=== PATIENT | male | born 1965 | race Caucasian/White ===

== ENCOUNTER 2020-06-04 14:50 | Emergency (ER) | payer MEDICAID, OTHER ==
[~2020-06-04] VITALS: Ht 165.1 cm; Wt 59.0 kg
[2020-06-04 15:23] LABS: Basophils # (auto) 0.1 10 ^3/uL (0-0.2); Basophils % (auto) 0.8 % (0.0-2.0); Eosinophils # (auto) 0.1 10 ^3/uL (0-0.8); Eosinophils % (auto) 1.1 % (0.0-7.0); Hematocrit 34.5 % (41.0-53.0); Hemoglobin 11.9 g/dL (13.5-17.5); Lymphocytes # (auto) 0.8 10 ^3/uL (0.4-5.4); Lymphocytes % (auto) 6.2 % (10.0-50.0); Mean Corpuscular Hemoglobin 30.6 pg (28.0-32.0); Mean Corpuscular Hgb Conc. 34.4 g/dL (32.0-36.0); Monocytes # (auto) 0.6 10 ^3/uL (0-1.3); Monocytes % (auto) 4.7 % (0.0-12.0); Neutrophils # (auto) 11.4 10 ^3/uL (1.6-8.6); Neutrophils % (auto) 87.2 % (37.0-80.0); Platelet Count (auto) 346 10^3/uL (140-450); Red Blood Cells 3.88 10^6/uL (4.5-5.90)
[2020-06-04 15:38] LABS: Albumin 3.9 g/dL (3.4-5.0); Calcium 8.8 mg/dL (8.5-10.1)
[2020-06-04 15:41] LABS: BUN/Creatinine Ratio 13.5; Bilirubin, Total 0.6 mg/dL (0.2-1.0); Total Protein 7.3 g/dL (6.4-8.2)
[2020-06-04 15:46] LABS: Potassium 2.6 mmol/L (3.5-5.1)
[2020-06-04] MEDS ORDERED: POTASSIUM EFFERVESENT TAB 25 MEQ PO ONE ×2 (16:30→18:30)
[2020-06-04] MEDS ORDERED: ACETAMINOPHEN 325 MG TAB PO ONE (20:30)
[2020-06-04] MEDS ORDERED: PIPERACILLIN-TAZOB 3.375GM 100 ML IV ONE (23:00)
[2020-06-05 01:45] VITALS: BP 120/79
== END 2020-06-05 01:56 | disposition home or self-care (01) ==
LOC: ER 14:50
DX: L03.116 Cellulitis of left lower limb (principal); L97.529 Non-pressure chronic ulcer of other part of left foot with unspecified severity; E87.6 Hypokalemia; F17.210 Nicotine dependence, cigarettes, uncomplicated; J44.9 Chronic obstructive pulmonary disease, unspecified
CPT/HCPCS: 36415; 73700; 80053; 83605; 83880; 84132; 84484; 85025; 87040; 93970; 96360; 96365; 96366; 99285; J2543

== ENCOUNTER 2020-09-10 12:46 | Inpatient (IN) | payer OTHER, MEDICAID ==
[~2020-09-10] VITALS: Ht 162.6 cm; Wt 50.8 kg
[2020-09-10 14:49] LABS: Basophils # (auto) 0.1 10 ^3/uL (0-0.2); Basophils % (auto) 1.2 % (0.0-2.0); Eosinophils # (auto) 0 10 ^3/uL (0-0.8); Eosinophils % (auto) 0.3 % (0.0-7.0); Hemoglobin 12.9 g/dL (13.5-17.5); Lymphocytes % (auto) 10.3 % (10.0-50.0); Mean Corpuscular Hemoglobin 30.9 pg (28.0-32.0); Mean Corpuscular Hgb Conc. 34.9 g/dL (32.0-36.0); Mean Corpuscular Volume 88.6 fL (80.0-100.0); Monocytes # (auto) 0.8 10 ^3/uL (0-1.3); Monocytes % (auto) 8.8 % (0.0-12.0); Neutrophils # (auto) 7.5 10 ^3/uL (1.6-8.6); Neutrophils % (auto) 79.4 % (37.0-80.0); Nucleated Red Blood Cells % 0.1 %; Platelet Count (auto) 345 10^3/uL (140-450); Red Blood Cells 4.18 10^6/uL (4.5-5.90); Red Cell Distribution Width 13.9 % (11.8-14.3); White Blood Cell 9.4 10^3/uL (4.4-10.8)
[2020-09-10 15:08] LABS: INR 0.98 (0.9-1.15); Partial Thromboplastin Time 28.8 sec (23.0-31.2)
[2020-09-10 15:22] LABS: Calcium 9.3 mg/dL (8.5-10.1)
[2020-09-10 15:28] LABS: Albumin 4.1 g/dL (3.4-5.0); BUN/Creatinine Ratio 21.3; Bilirubin, Total 1.1 mg/dL (0.2-1.0); Total Protein 7.5 g/dL (6.4-8.2)
[2020-09-10 15:42] LABS: Potassium 2.8 mmol/L (3.5-5.1)
[2020-09-10] MEDS ORDERED: MORPHINE SULFATE 4 MG/ML SYR/VIAL ONE (16:29)
[2020-09-10] MEDS ORDERED: ONDANSETRON HCL 4 MG/2 ML VIAL ONE (16:29)
[2020-09-10] MEDS ORDERED: ETOMIDATE (2MG/ML) 20ML VIAL IV ONE ×3 (16:29→17:51)
[2020-09-10] MEDS ORDERED: MORPHINE SULFATE 4 MG/ML SYR/VIAL IV ONE (16:30)
[2020-09-10] MEDS ORDERED: ONDANSETRON HCL 4 MG/2 ML VIAL IV ONE (16:30)
[2020-09-10] MEDS ORDERED: LIDOCAINE 1% HCL (LOCAL ANESTH.) INJ 20ML MDV ONE (16:39)
[2020-09-10] MEDS ORDERED: cefTRIAXone 1GM/50ML D5W 50 ML IV ONE (18:08)
[2020-09-10] MEDS ORDERED: MORPHINE SULF INJ 2 MG/ML SYRINGE 1ML ONE (18:10)
[2020-09-10] MEDS ORDERED: LORazepam 2MG/ML-1ML VIAL IV ONE (18:11)
[2020-09-10] MEDS ORDERED: LORazepam MDV 2MG/ML 10 ML IV ONE (18:11)
[2020-09-10] MEDS ORDERED: POTASSIUM CHL 20MEQ/100ML 100 ML IV ONE (18:53)
[2020-09-10] MEDS ORDERED: POTASSIUM CHLORIDE 40 MEQ, LIDOCAINE 1% (LOCAL ANESTH.) 4 ML in SODIUM CHL 0.9% 250 ML IV ONE (19:00)
[2020-09-10] MEDS: SODIUM CHLORIDE 0.9% 1,000 ML IV SCH (19:15)
[2020-09-10] MEDS ORDERED: POTASSIUM EFFERVESENT TAB 25 MEQ PO ONE (21:00)
[2020-09-10] MEDS: POTASSIUM CHL 20MEQ/100ML 100 ML IV SCH ×2 (21:30→22:19)
[2020-09-10] MEDS ORDERED: MORPHINE SULFATE 4 MG/ML SYR/VIAL IV PRN (21:30)
[2020-09-10] MEDS ORDERED: ONDANSETRON HCL 4 MG/2 ML VIAL IV PRN (21:30)
[2020-09-10] MEDS ORDERED: MORPHINE SULF INJ 2 MG/ML SYRINGE 1ML IV PRN (21:30)
[2020-09-10] MEDS ORDERED: NITROGLYCERIN 0.4 MG SL TAB SL PRN (21:30)
[2020-09-10] MEDS ORDERED: DOCUSATE SOD 100 MG CAP PO PRN (21:30)
[2020-09-10] MEDS ORDERED: IOHEXOL 300 MG/ML 100ML BOTTLE IJ ONE (21:49)
[2020-09-10] MEDS: ASCORBIC ACID 500 MG TAB PO SCH (22:00)
[2020-09-11] VITALS (47 sets, daily range): BP systolic 80–182; BP diastolic 43–127
[2020-09-11] MEDS ORDERED: POTASSIUM CHLORIDE 20 MEQ in SODIUM CHLORIDE 0.9% 1,000 ML IV SCH (01:30)
[2020-09-11] MEDS ORDERED: SUCCINYLCHOLINE CHLORIDE 20 MG/ML 10ML VIAL IV ONE ×2 (05:11→05:30)
[2020-09-11] MEDS: SODIUM CHLORIDE 0.9% 1,000 ML IV SCH ×2 (05:15→13:33)
[2020-09-11] MEDS ORDERED: PROPOFOL 10 MG/ML 20 ML IV PRN (05:30)
[2020-09-11] MEDS ORDERED: ETOMIDATE (2MG/ML) 20ML VIAL IV ONE (05:30)
[2020-09-11] MEDS ORDERED: PROPOFOL 100 ML IV ONE (05:33)
[2020-09-11] MEDS ORDERED: NOREPINEPHRINE 8 MG/250ML KIT 250 ML IV ONE (05:44)
[2020-09-11] MEDS ORDERED: MIDAZOLAM DRIP 50 mg/50mL 50 ML IV ONE (05:44)
[2020-09-11] MEDS: MIDAZOLAM DRIP 50 mg/50mL 50 ML IV SCH ×3 (05:58→22:00)
[2020-09-11] MEDS: PIPERACILLIN-TAZOB 3.375GM 100 ML IV SCH ×3 (05:59→18:20)
[2020-09-11] MEDS ORDERED: ALBUTEROL SULF 2.5 MG/0.5ML(0.5%) NEB SOLN ONE (09:25)
[2020-09-11] MEDS: MULTIPLE VITAMIN TAB PO SCH (10:00)
[2020-09-11] MEDS: PHENYLEPHRINE IV 250 ML IV SCH ×3 (11:54→20:00)
[2020-09-11] MEDS: NOREPINEPHRINE 8 MG/250ML KIT 250 ML IV PRN ×2 (11:55→22:00)
[2020-09-11 12:53] LABS: Basophils # (auto) 0 10 ^3/uL (0-0.2); Basophils % (auto) 1.1 % (0.0-2.0); Eosinophils # (auto) 0 10 ^3/uL (0-0.8); Eosinophils % (auto) 0.7 % (0.0-7.0); Hematocrit 39.8 % (41.0-53.0); Hemoglobin 13.4 g/dL (13.5-17.5); Lymphocytes # (auto) 0.7 10 ^3/uL (0.4-5.4); Lymphocytes % (auto) 30.6 % (10.0-50.0); Mean Corpuscular Hemoglobin 30.8 pg (28.0-32.0); Mean Corpuscular Hgb Conc. 33.7 g/dL (32.0-36.0); Mean Corpuscular Volume 91.3 fL (80.0-100.0); Monocytes # (auto) 0.2 10 ^3/uL (0-1.3); Neutrophils # (auto) 1.4 10 ^3/uL (1.6-8.6); Neutrophils % (auto) 60.6 % (37.0-80.0); Nucleated Red Blood Cells % 0.2 %; Platelet Count (auto) 285 10^3/uL (140-450); Red Blood Cells 4.36 10^6/uL (4.5-5.90); Red Cell Distribution Width 14.5 % (11.8-14.3); White Blood Cell 2.3 10^3/uL (4.4-10.8)
[2020-09-11 13:08] LABS: Albumin 2.6 g/dL (3.4-5.0); Calcium 7.8 mg/dL (8.5-10.1); Potassium 3.1 mmol/L (3.5-5.1)
[2020-09-11 13:11] LABS: BUN/Creatinine Ratio 17.3; Bilirubin, Total 0.6 mg/dL (0.2-1.0); Total Protein 5.7 g/dL (6.4-8.2)
[2020-09-11 13:13] LABS: Lactic Acid w/Reflex 3.4 mmol/L (0.4-2.0)
[2020-09-11] MEDS: FAMOTIDINE 20 MG TAB PO SCH (13:33)
[2020-09-11] MEDS: ASCORBIC ACID 500 MG TAB PO SCH ×2 (13:33→22:00)
[2020-09-11] MEDS: ZINC SULFATE 220mg CAP or TAB PO SCH (13:33)
[2020-09-11] MEDS ORDERED: POTASSIUM CHL 20MEQ/100ML 100 ML IV ONE (13:45)
[2020-09-11] MEDS: methylPREDNISolone SOD SUCC 125 MG/2 ML VL IV SCH ×2 (14:00→22:00)
[2020-09-11] MEDS: VASOPRESSIN 50 UNITS in D5W 5% 247.5 ML IV SCH (14:20)
[2020-09-11] MEDS ORDERED: VASOPRESSIN 20 UNIT/ML ONE (14:53)
[2020-09-11] MEDS: IPRATROPIUM BROM 0.5 MG/2.5ML INH SOL NEB SCH (18:00)
[2020-09-11] MEDS: ALBUTEROL SULF 2.5 MG/0.5ML(0.5%) NEB SOLN NEB SCH (18:00)
[2020-09-12] VITALS (89 sets, daily range): BP systolic 86–141; BP diastolic 62–100
[2020-09-12] MEDS: PIPERACILLIN-TAZOB 3.375GM 100 ML IV SCH ×5 (00:23→23:05)
[2020-09-12] MEDS: SODIUM CHLORIDE 0.9% 1,000 ML IV SCH ×3 (01:00→21:15)
[2020-09-12] MEDS: MIDAZOLAM DRIP 50 mg/50mL 50 ML IV SCH ×2 (01:00→05:00)
[2020-09-12 05:17] LABS: Basophils # (auto) 0 10 ^3/uL (0-0.2); Basophils % (auto) 0.2 % (0.0-2.0); Eosinophils # (auto) 0 10 ^3/uL (0-0.8); Eosinophils % (auto) 0.1 % (0.0-7.0); Hematocrit 36.9 % (41.0-53.0); Hemoglobin 12.7 g/dL (13.5-17.5); Lymphocytes # (auto) 0.3 10 ^3/uL (0.4-5.4); Lymphocytes % (auto) 2.6 % (10.0-50.0); Mean Corpuscular Hemoglobin 30.9 pg (28.0-32.0); Mean Corpuscular Hgb Conc. 34.5 g/dL (32.0-36.0); Mean Corpuscular Volume 89.6 fL (80.0-100.0); Monocytes # (auto) 0.2 10 ^3/uL (0-1.3); Monocytes % (auto) 2.6 % (0.0-12.0); Neutrophils # (auto) 9.1 10 ^3/uL (1.6-8.6); Neutrophils % (auto) 94.5 % (37.0-80.0); Platelet Count (auto) 169 10^3/uL (140-450); Red Blood Cells 4.12 10^6/uL (4.5-5.90); Red Cell Distribution Width 14.3 % (11.8-14.3); White Blood Cell 9.6 10^3/uL (4.4-10.8)
[2020-09-12 05:40] LABS: Potassium 3.2 mmol/L (3.5-5.1)
[2020-09-12 05:48] LABS: Albumin 2.3 g/dL (3.4-5.0); BUN/Creatinine Ratio 19.5; Bilirubin, Total 0.5 mg/dL (0.2-1.0); Calcium 7.4 mg/dL (8.5-10.1); Total Protein 5.4 g/dL (6.4-8.2)
[2020-09-12] MEDS: IPRATROPIUM BROM 0.5 MG/2.5ML INH SOL NEB SCH ×4 (06:00→18:24)
[2020-09-12] MEDS: ALBUTEROL SULF 2.5 MG/0.5ML(0.5%) NEB SOLN NEB SCH ×4 (06:00→18:24)
[2020-09-12] MEDS: methylPREDNISolone SOD SUCC 125 MG/2 ML VL IV SCH ×3 (06:22→22:54)
[2020-09-12] MEDS: PHENYLEPHRINE IV 250 ML IV SCH ×2 (10:45→19:05)
[2020-09-12] MEDS: POTASSIUM CHL 20MEQ/100ML 100 ML IV SCH ×4 (11:14→13:35)
[2020-09-12] MEDS: THIAMINE 100mg/ml INJ (200mg/2ml VIAL) IV SCH (11:14)
[2020-09-12] MEDS: MULTIPLE VITAMIN TAB PO SCH (11:15)
[2020-09-12] MEDS: ASCORBIC ACID 500 MG TAB PO SCH ×2 (11:15→22:58)
[2020-09-12] MEDS: FAMOTIDINE 20 MG TAB PO SCH (11:15)
[2020-09-12] MEDS: ZINC SULFATE 220mg CAP or TAB PO SCH (11:15)
[2020-09-12] MEDS: ENOXAPARIN SOD 40 MG/0.4 ML SYRINGE SC SCH (11:15)
[2020-09-12 12:22] LABS: Magnesium 1.2 mg/dL (1.6-2.6); Phosphorus 3.4 mg/dL (2.5-4.90)
[2020-09-12] MEDS: FOLIC ACID 1 MG in D5W 5% 50 ML INJ SCH (12:36)
[2020-09-12] MEDS ORDERED: METO-75 PO (13:03)
[2020-09-12] MEDS ORDERED: ALBU2TAB4 PO (13:03)
[2020-09-12] MEDS ORDERED: POTA-180 PO (13:03)
[2020-09-12] MEDS ORDERED: TIOTCAP IN (13:03)
[2020-09-12] MEDS ORDERED: HYDR-4833 PO (13:03)
[2020-09-12] MEDS ORDERED: OMEP20TA PO (13:03)
[2020-09-12] MEDS: VASOPRESSIN 50 UNITS in D5W 5% 247.5 ML IV SCH (13:49)
[2020-09-12] MEDS ORDERED: PROPOFOL 100 ML IV SCH (18:45)
[2020-09-12] MEDS: PROPOFOL 100 ML IV SCH (19:00)
[2020-09-13] VITALS (78 sets, daily range): BP systolic 85–127; BP diastolic 7–96
[2020-09-13] MEDS: MIDAZOLAM DRIP 50 mg/50mL 50 ML IV SCH ×8 (00:06→23:00)
[2020-09-13 04:14] LABS: Basophils # (auto) 0 10 ^3/uL (0-0.2); Basophils % (auto) 0.1 % (0.0-2.0); Eosinophils # (auto) 0 10 ^3/uL (0-0.8); Eosinophils % (auto) 0.1 % (0.0-7.0); Hematocrit 30.8 % (41.0-53.0); Hemoglobin 10.7 g/dL (13.5-17.5); Lymphocytes # (auto) 0.3 10 ^3/uL (0.4-5.4); Lymphocytes % (auto) 2.2 % (10.0-50.0); Mean Corpuscular Hemoglobin 30.5 pg (28.0-32.0); Mean Corpuscular Hgb Conc. 34.9 g/dL (32.0-36.0); Mean Corpuscular Volume 87.4 fL (80.0-100.0); Monocytes # (auto) 0.4 10 ^3/uL (0-1.3); Monocytes % (auto) 3.6 % (0.0-12.0); Neutrophils # (auto) 10.9 10 ^3/uL (1.6-8.6); Platelet Count (auto) 160 10^3/uL (140-450); Red Blood Cells 3.52 10^6/uL (4.5-5.90); Red Cell Distribution Width 14.2 % (11.8-14.3); White Blood Cell 11.6 10^3/uL (4.4-10.8)
[2020-09-13 04:38] LABS: BUN/Creatinine Ratio 25.7; Calcium 7.9 mg/dL (8.5-10.1); Potassium 3.1 mmol/L (3.5-5.1)
[2020-09-13] MEDS: methylPREDNISolone SOD SUCC 125 MG/2 ML VL IV SCH ×3 (05:39→22:25)
[2020-09-13] MEDS: PIPERACILLIN-TAZOB 3.375GM 100 ML IV SCH ×3 (05:39→18:44)
[2020-09-13] MEDS: SODIUM CHLORIDE 0.9% 1,000 ML IV SCH ×2 (05:47→17:15)
[2020-09-13] MEDS: IPRATROPIUM BROM 0.5 MG/2.5ML INH SOL NEB SCH ×4 (08:00→18:30)
[2020-09-13] MEDS: ALBUTEROL SULF 2.5 MG/0.5ML(0.5%) NEB SOLN NEB SCH ×4 (10:37→18:31)
[2020-09-13] MEDS: POTASSIUM CHL 20MEQ/100ML 100 ML IV SCH ×2 (11:27→13:58)
[2020-09-13] MEDS: THIAMINE 100mg/ml INJ (200mg/2ml VIAL) IV SCH (11:28)
[2020-09-13] MEDS: ASCORBIC ACID 500 MG TAB PO SCH ×2 (11:29→22:27)
[2020-09-13] MEDS: ZINC SULFATE 220mg CAP or TAB PO SCH (11:29)
[2020-09-13] MEDS: FAMOTIDINE 20 MG TAB PO SCH (11:29)
[2020-09-13] MEDS: ENOXAPARIN SOD 40 MG/0.4 ML SYRINGE SC SCH (11:30)
[2020-09-13] MEDS: MULTIPLE VITAMIN TAB PO SCH (11:31)
[2020-09-13] MEDS: PHENYLEPHRINE IV 250 ML IV SCH ×2 (11:45→20:05)
[2020-09-13] MEDS: VASOPRESSIN 50 UNITS in D5W 5% 247.5 ML IV SCH (14:00)
[2020-09-13] MEDS: MAGNESIUM SULFATE 1GM/100ML 100 ML IV SCH ×3 (16:40→18:43)
[2020-09-13] MEDS: FOLIC ACID 1 MG in D5W 5% 50 ML INJ SCH (16:45)
[2020-09-13] MEDS: PROPOFOL 100 ML IV SCH (19:00)
[2020-09-14] VITALS (95 sets, daily range): BP systolic 103–158; BP diastolic 73–104
[2020-09-14] MEDS: PIPERACILLIN-TAZOB 3.375GM 100 ML IV SCH ×4 (00:33→17:23)
[2020-09-14] MEDS: IPRATROPIUM BROM 0.5 MG/2.5ML INH SOL NEB SCH ×5 (01:59→22:09)
[2020-09-14] MEDS: ALBUTEROL SULF 2.5 MG/0.5ML(0.5%) NEB SOLN NEB SCH ×5 (01:59→22:09)
[2020-09-14] MEDS: PHENYLEPHRINE IV 250 ML IV SCH (04:25)
[2020-09-14 04:51] LABS: Calcium 8.2 mg/dL (8.5-10.1); Magnesium 2.4 mg/dL (1.6-2.6); Potassium 3.1 mmol/L (3.5-5.1)
[2020-09-14 04:53] LABS: BUN/Creatinine Ratio 24.3
[2020-09-14] MEDS: SODIUM CHLORIDE 0.9% 1,000 ML IV SCH ×2 (06:00→17:23)
[2020-09-14] MEDS: MIDAZOLAM DRIP 50 mg/50mL 50 ML IV SCH ×2 (06:00→09:01)
[2020-09-14] MEDS: methylPREDNISolone SOD SUCC 125 MG/2 ML VL IV SCH ×3 (06:20→21:53)
[2020-09-14] MEDS: THIAMINE 100mg/ml INJ (200mg/2ml VIAL) IV SCH (09:54)
[2020-09-14] MEDS: FOLIC ACID 1 MG in D5W 5% 50 ML INJ SCH (09:54)
[2020-09-14] MEDS: FAMOTIDINE 20 MG TAB PO SCH (09:55)
[2020-09-14] MEDS: ENOXAPARIN SOD 40 MG/0.4 ML SYRINGE SC SCH (09:55)
[2020-09-14] MEDS: ASCORBIC ACID 500 MG TAB PO SCH ×2 (09:55→21:54)
[2020-09-14] MEDS: MULTIPLE VITAMIN TAB PO SCH (09:55)
[2020-09-14] MEDS: ZINC SULFATE 220mg CAP or TAB PO SCH (09:55)
[2020-09-14] MEDS: POTASSIUM CHL 20MEQ/100ML 100 ML IV SCH ×3 (09:57→13:53)
[2020-09-14] MEDS: PROPOFOL 100 ML IV SCH (19:00)
[2020-09-14] MEDS: MORPHINE SULF INJ 2 MG/ML SYRINGE 1ML IV PRN (22:01)
[2020-09-15] VITALS (46 sets, daily range): BP systolic 100–175; BP diastolic 72–111
[2020-09-15] MEDS: PIPERACILLIN-TAZOB 3.375GM 100 ML IV SCH ×5 (00:38→23:13)
[2020-09-15] MEDS: SODIUM CHLORIDE 0.9% 1,000 ML IV SCH ×3 (01:41→12:11)
[2020-09-15 04:16] LABS: Basophils # (auto) 0 10 ^3/uL (0-0.2); Basophils % (auto) 0.1 % (0.0-2.0); Eosinophils # (auto) 0 10 ^3/uL (0-0.8); Eosinophils % (auto) 0.1 % (0.0-7.0); Hematocrit 26.2 % (41.0-53.0); Hemoglobin 9.3 g/dL (13.5-17.5); Lymphocytes # (auto) 0.2 10 ^3/uL (0.4-5.4); Lymphocytes % (auto) 1.7 % (10.0-50.0); Mean Corpuscular Hemoglobin 30.9 pg (28.0-32.0); Mean Corpuscular Hgb Conc. 35.4 g/dL (32.0-36.0); Mean Corpuscular Volume 87.3 fL (80.0-100.0); Monocytes # (auto) 0.6 10 ^3/uL (0-1.3); Monocytes % (auto) 6.1 % (0.0-12.0); Neutrophils # (auto) 9.1 10 ^3/uL (1.6-8.6); Nucleated Red Blood Cells % 0.1 %; Platelet Count (auto) 112 10^3/uL (140-450); Red Cell Distribution Width 14.3 % (11.8-14.3); White Blood Cell 9.9 10^3/uL (4.4-10.8)
[2020-09-15 04:29] LABS: Albumin 1.9 g/dL (3.4-5.0); BUN/Creatinine Ratio 31.6; Magnesium 2.1 mg/dL (1.6-2.6)
[2020-09-15 04:32] LABS: Bilirubin, Total 0.4 mg/dL (0.2-1.0); Total Protein 5.4 g/dL (6.4-8.2)
[2020-09-15] MEDS: PHENYLEPHRINE IV 250 ML IV SCH ×2 (05:25→19:30)
[2020-09-15] MEDS: methylPREDNISolone SOD SUCC 125 MG/2 ML VL IV SCH ×3 (06:26→21:23)
[2020-09-15] MEDS: IPRATROPIUM BROM 0.5 MG/2.5ML INH SOL NEB SCH ×3 (07:49→18:00)
[2020-09-15] MEDS: ALBUTEROL SULF 2.5 MG/0.5ML(0.5%) NEB SOLN NEB SCH ×3 (07:49→18:00)
[2020-09-15] MEDS: FOLIC ACID 1 MG in D5W 5% 50 ML INJ SCH (09:15)
[2020-09-15] MEDS: ZINC SULFATE 220mg CAP or TAB PO SCH (09:31)
[2020-09-15] MEDS: THIAMINE 100mg/ml INJ (200mg/2ml VIAL) IV SCH (09:31)
[2020-09-15] MEDS: ASCORBIC ACID 500 MG TAB PO SCH ×2 (09:32→21:23)
[2020-09-15] MEDS: MULTIPLE VITAMIN TAB PO SCH (09:32)
[2020-09-15] MEDS: FAMOTIDINE 20 MG TAB PO SCH ×2 (09:32)
[2020-09-15] MEDS: ENOXAPARIN SOD 40 MG/0.4 ML SYRINGE SC SCH (09:32)
[2020-09-15] MEDS ORDERED: POTASSIUM CHLORIDE 60 MEQ, LIDOCAINE 1% (LOCAL ANESTH.) 6 ML in SODIUM CHL 0.9% 500 ML IV ONE (11:45)
[2020-09-15] MEDS: MIDAZOLAM DRIP 50 mg/50mL 50 ML IV SCH ×2 (12:10→17:52)
[2020-09-15] MEDS: VASOPRESSIN 50 UNITS in D5W 5% 247.5 ML IV SCH ×2 (14:00→19:30)
[2020-09-15] MEDS ORDERED: fentaNYL Drip 2500mCg/250mlNS 250 ML IV SCH (17:45)
[2020-09-16] VITALS (100 sets, daily range): BP systolic 107–177; BP diastolic 8–115
[2020-09-16] MEDS: MIDAZOLAM DRIP 50 mg/50mL 50 ML IV SCH ×2 (01:22→07:36)
[2020-09-16] MEDS: SODIUM CHLORIDE 0.9% 1,000 ML IV SCH ×2 (05:15→14:48)
[2020-09-16] MEDS: methylPREDNISolone SOD SUCC 125 MG/2 ML VL IV SCH ×3 (05:31→21:29)
[2020-09-16] MEDS: PIPERACILLIN-TAZOB 3.375GM 100 ML IV SCH ×4 (05:32→23:51)
[2020-09-16] MEDS: IPRATROPIUM BROM 0.5 MG/2.5ML INH SOL NEB SCH ×5 (06:00→23:40)
[2020-09-16] MEDS: ALBUTEROL SULF 2.5 MG/0.5ML(0.5%) NEB SOLN NEB SCH ×5 (06:00→23:40)
[2020-09-16 06:34] LABS: Basophils # (auto) 0 10 ^3/uL (0-0.2); Eosinophils # (auto) 0 10 ^3/uL (0-0.8); Hematocrit 27.8 % (41.0-53.0); Hemoglobin 9.7 g/dL (13.5-17.5); Lymphocytes # (auto) 0.4 10 ^3/uL (0.4-5.4); Lymphocytes % (auto) 4.2 % (10.0-50.0); Mean Corpuscular Hemoglobin 30.7 pg (28.0-32.0); Mean Corpuscular Hgb Conc. 34.8 g/dL (32.0-36.0); Mean Corpuscular Volume 88.1 fL (80.0-100.0); Monocytes % (auto) 11.6 % (0.0-12.0); Neutrophils # (auto) 7.4 10 ^3/uL (1.6-8.6); Neutrophils % (auto) 84.2 % (37.0-80.0); Nucleated Red Blood Cells % 0.4 %; Platelet Count (auto) 137 10^3/uL (140-450); Red Blood Cells 3.15 10^6/uL (4.5-5.90); Red Cell Distribution Width 14.5 % (11.8-14.3); White Blood Cell 8.8 10^3/uL (4.4-10.8)
[2020-09-16 07:06] LABS: Albumin 1.8 g/dL (3.4-5.0); Calcium 8.2 mg/dL (8.5-10.1); Magnesium 2.2 mg/dL (1.6-2.6); Potassium 3.2 mmol/L (3.5-5.1)
[2020-09-16 07:10] LABS: BUN/Creatinine Ratio 34.7; Bilirubin, Total 0.4 mg/dL (0.2-1.0); Total Protein 5.5 g/dL (6.4-8.2)
[2020-09-16] MEDS: ZINC SULFATE 220mg CAP or TAB PO SCH (09:21)
[2020-09-16] MEDS: MULTIPLE VITAMIN TAB PO SCH (09:21)
[2020-09-16] MEDS: ASCORBIC ACID 500 MG TAB PO SCH ×2 (09:21→21:29)
[2020-09-16] MEDS: FAMOTIDINE 20 MG TAB PO SCH ×2 (09:22→21:29)
[2020-09-16] MEDS: THIAMINE 100mg/ml INJ (200mg/2ml VIAL) IV SCH (09:23)
[2020-09-16] MEDS: FOLIC ACID 1 MG in D5W 5% 50 ML INJ SCH (10:41)
[2020-09-16] MEDS: ENOXAPARIN SOD 40 MG/0.4 ML SYRINGE SC SCH (13:14)
[2020-09-16] MEDS ORDERED: POTASSIUM CHLORIDE 40 MEQ, LIDOCAINE 1% (LOCAL ANESTH.) 4 ML in SODIUM CHL 0.9% 250 ML IV ONE (16:00)
[2020-09-16] MEDS: PROPOFOL 100 ML IV SCH (18:16)
[2020-09-16] MEDS: PHENYLEPHRINE IV 250 ML IV SCH (23:05)
[2020-09-17] VITALS (80 sets, daily range): BP systolic 129–180; BP diastolic 78–126
[2020-09-17] MEDS: SODIUM CHLORIDE 0.9% 1,000 ML IV SCH ×3 (01:46→22:04)
[2020-09-17] MEDS: methylPREDNISolone SOD SUCC 125 MG/2 ML VL IV SCH ×3 (06:08→22:04)
[2020-09-17] MEDS: PIPERACILLIN-TAZOB 3.375GM 100 ML IV SCH ×2 (06:09→11:51)
[2020-09-17 06:29] LABS: Albumin 1.7 g/dL (3.4-5.0); Potassium 3.3 mmol/L (3.5-5.1)
[2020-09-17 06:31] LABS: Basophils # (auto) 0 10 ^3/uL (0-0.2); Basophils % (auto) 0.2 % (0.0-2.0); Eosinophils # (auto) 0 10 ^3/uL (0-0.8); Eosinophils % (auto) 0.1 % (0.0-7.0); Hematocrit 27.6 % (41.0-53.0); Hemoglobin 9.4 g/dL (13.5-17.5); Lymphocytes # (auto) 0.4 10 ^3/uL (0.4-5.4); Lymphocytes % (auto) 6.5 % (10.0-50.0); Mean Corpuscular Hemoglobin 30.1 pg (28.0-32.0); Mean Corpuscular Hgb Conc. 34.1 g/dL (32.0-36.0); Mean Corpuscular Volume 88.2 fL (80.0-100.0); Monocytes # (auto) 0.7 10 ^3/uL (0-1.3); Monocytes % (auto) 11.3 % (0.0-12.0); Neutrophils % (auto) 81.9 % (37.0-80.0); Nucleated Red Blood Cells % 0.4 %; Platelet Count (auto) 184 10^3/uL (140-450); Red Blood Cells 3.13 10^6/uL (4.5-5.90); Red Cell Distribution Width 14.4 % (11.8-14.3); White Blood Cell 6.1 10^3/uL (4.4-10.8)
[2020-09-17 06:32] LABS: BUN/Creatinine Ratio 37.7; Bilirubin, Total 0.6 mg/dL (0.2-1.0); Phosphorus 1.7 mg/dL (2.5-4.90); Total Protein 5.3 g/dL (6.4-8.2)
[2020-09-17] MEDS: ALBUTEROL SULF 2.5 MG/0.5ML(0.5%) NEB SOLN NEB SCH ×4 (06:35→23:45)
[2020-09-17] MEDS: IPRATROPIUM BROM 0.5 MG/2.5ML INH SOL NEB SCH ×4 (06:35→23:45)
[2020-09-17] MEDS: PHENYLEPHRINE IV 250 ML IV SCH (07:25)
[2020-09-17] MEDS ORDERED: POTASSIUM PHOSPHATE 44 MEQ in D5W 5% 250 ML IV ONE (07:45)
[2020-09-17] MEDS ORDERED: POTASSIUM CHLORIDE 40 MEQ, LIDOCAINE 1% (LOCAL ANESTH.) 4 ML in SODIUM CHL 0.9% 250 ML IV ONE (07:45)
[2020-09-17] MEDS: MULTIPLE VITAMIN TAB PO SCH (09:13)
[2020-09-17] MEDS: FAMOTIDINE 20 MG TAB PO SCH ×2 (09:13→22:00)
[2020-09-17] MEDS: ASCORBIC ACID 500 MG TAB PO SCH ×2 (09:13→22:00)
[2020-09-17] MEDS: THIAMINE 100mg/ml INJ (200mg/2ml VIAL) IV SCH (09:13)
[2020-09-17] MEDS: ENOXAPARIN SOD 40 MG/0.4 ML SYRINGE SC SCH (09:13)
[2020-09-17] MEDS: ZINC SULFATE 220mg CAP or TAB PO SCH (09:13)
[2020-09-17] MEDS: FOLIC ACID 1 MG in D5W 5% 50 ML INJ SCH (11:07)
[2020-09-17] MEDS: MORPHINE SULF INJ 2 MG/ML SYRINGE 1ML IV PRN ×2 (12:44→23:03)
[2020-09-17] MEDS ORDERED: LORazepam 2MG/ML-1ML VIAL ONE (14:50)
[2020-09-17] MEDS ORDERED: LORazepam 2MG/ML-1ML VIAL IV ONE (15:00)
[2020-09-17] MEDS ORDERED: NICOTINE 21MG/24 HR TOPICAL PATCH TD ONE (17:15)
[2020-09-17] MEDS ORDERED: METOPROLOL TARTRATE 1MG/1ML-5ML VIAL IV ONE (17:28)
[2020-09-17] MEDS: METOPROLOL TARTRATE 1MG/1ML-5ML VIAL IV PRN ×2 (17:31→22:36)
[2020-09-17] MEDS ORDERED: HALOPERIDOL LACTATE 5 MG/ML INJ VIAL IM PRN (18:45)
[2020-09-17] MEDS: ceFAZolin 1GM/50ML 50 ML IV SCH (22:05)
[2020-09-18] VITALS (21 sets, daily range): BP systolic 122–197; BP diastolic 86–110
[2020-09-18] MEDS: METOPROLOL TARTRATE 1MG/1ML-5ML VIAL IV PRN (04:11)
[2020-09-18] MEDS: MORPHINE SULF INJ 2 MG/ML SYRINGE 1ML IV PRN ×4 (04:11→21:00)
[2020-09-18] MEDS: methylPREDNISolone SOD SUCC 125 MG/2 ML VL IV SCH ×3 (06:28→21:39)
[2020-09-18] MEDS: ALBUTEROL SULF 2.5 MG/0.5ML(0.5%) NEB SOLN NEB SCH ×3 (06:44→18:25)
[2020-09-18] MEDS: IPRATROPIUM BROM 0.5 MG/2.5ML INH SOL NEB SCH ×3 (06:44→18:25)
[2020-09-18] MEDS: SODIUM CHLORIDE 0.9% 1,000 ML IV SCH ×2 (07:15→16:42)
[2020-09-18] MEDS: THIAMINE 100mg/ml INJ (200mg/2ml VIAL) IV SCH (09:08)
[2020-09-18] MEDS: NICOTINE 21MG/24 HR TOPICAL PATCH TD SCH (09:10)
[2020-09-18] MEDS: ceFAZolin 1GM/50ML 50 ML IV SCH ×3 (09:54→21:39)
[2020-09-18] MEDS: ENOXAPARIN SOD 40 MG/0.4 ML SYRINGE SC SCH (10:00)
[2020-09-18] MEDS: ASCORBIC ACID 500 MG TAB PO SCH ×2 (10:00→21:40)
[2020-09-18] MEDS: ZINC SULFATE 220mg CAP or TAB PO SCH (10:00)
[2020-09-18] MEDS: FAMOTIDINE 20 MG TAB PO SCH ×2 (10:00→21:39)
[2020-09-18] MEDS: MULTIPLE VITAMIN TAB PO SCH (10:00)
[2020-09-18 10:23] LABS: Hematocrit 31.9 % (41.0-53.0); Hemoglobin 10.8 g/dL (13.5-17.5); Mean Corpuscular Hemoglobin 29.6 pg (28.0-32.0); Mean Corpuscular Hgb Conc. 33.9 g/dL (32.0-36.0); Mean Corpuscular Volume 87.4 fL (80.0-100.0); Platelet Count (auto) 268 10^3/uL (140-450); Red Blood Cells 3.64 10^6/uL (4.5-5.90); Red Cell Distribution Width 14.3 % (11.8-14.3); White Blood Cell 17.5 10^3/uL (4.4-10.8)
[2020-09-18 10:26] LABS: Albumin 2.3 g/dL (3.4-5.0); Calcium 8.4 mg/dL (8.5-10.1); Magnesium 1.6 mg/dL (1.6-2.6)
[2020-09-18 10:31] LABS: BUN/Creatinine Ratio 32.7; Bilirubin, Total 1.1 mg/dL (0.2-1.0); Phosphorus 1.9 mg/dL (2.5-4.90)
[2020-09-18 11:02] LABS: Basophils % (manual) 0 (0.0-2.0); Blast Cells 0; Eosinophils % (manual) 0 (0-7); Metamyelocytes % 0; Myelocytes % 0; Promyelocytes % 0; Reactive Lymphocytes 0
[2020-09-18] MEDS: FOLIC ACID 1 MG in D5W 5% 50 ML INJ SCH (11:12)
[2020-09-18] MEDS: POTASSIUM CHL 20MEQ/100ML 100 ML IV SCH ×2 (13:13→15:07)
[2020-09-18] MEDS ORDERED: POTASSIUM PHOSPHATE 44 MEQ in D5W 5% 250 ML IV ONE (13:15)
[2020-09-18 13:23] LABS: Band Neutrophils % (manual) 4; Lymphocytes % (manual) 5 (10.0-50.0); Monocytes % (manual) 2 (0-12)
[2020-09-18] MEDS: MAGNESIUM SULFATE 1GM/100ML 100 ML IV SCH ×3 (14:47→17:30)
[2020-09-18] MEDS ORDERED: POTASSIUM PHOSPHATE 22 MEQ in SODIUM CHL 0.9% 100 ML IV ONE (17:00)
[2020-09-19] VITALS: BP 147/106
[2020-09-19 01:37] VITALS: BP 130/90
[2020-09-19] MEDS: SODIUM CHLORIDE 0.9% 1,000 ML IV SCH ×3 (03:15→23:22)
[2020-09-19] MEDS: methylPREDNISolone SOD SUCC 125 MG/2 ML VL IV SCH ×3 (04:57→22:34)
[2020-09-19] MEDS: ceFAZolin 1GM/50ML 50 ML IV SCH ×3 (04:58→22:34)
[2020-09-19] MEDS: IPRATROPIUM BROM 0.5 MG/2.5ML INH SOL NEB SCH ×4 (06:00→18:46)
[2020-09-19] MEDS: ALBUTEROL SULF 2.5 MG/0.5ML(0.5%) NEB SOLN NEB SCH ×4 (06:00→18:46)
[2020-09-19 08:00] VITALS: BP 110/70
[2020-09-19] MEDS: ZINC SULFATE 220mg CAP or TAB PO SCH (10:52)
[2020-09-19] MEDS: FAMOTIDINE 20 MG TAB PO SCH ×2 (10:52→22:34)
[2020-09-19] MEDS: FOLIC ACID 1 MG in D5W 5% 50 ML INJ SCH (10:52)
[2020-09-19] MEDS: NICOTINE 21MG/24 HR TOPICAL PATCH TD SCH (10:53)
[2020-09-19] MEDS: ENOXAPARIN SOD 40 MG/0.4 ML SYRINGE SC SCH (10:53)
[2020-09-19] MEDS: ASCORBIC ACID 500 MG TAB PO SCH ×2 (10:53→22:35)
[2020-09-19] MEDS: THIAMINE 100mg/ml INJ (200mg/2ml VIAL) IV SCH (10:55)
[2020-09-19] MEDS: MULTIPLE VITAMIN TAB PO SCH (10:56)
[2020-09-19 11:21] LABS: Albumin 2.4 g/dL (3.4-5.0); Calcium 8.1 mg/dL (8.5-10.1); Potassium 3.3 mmol/L (3.5-5.1)
[2020-09-19 11:29] LABS: BUN/Creatinine Ratio 17.9; Bilirubin, Total 0.9 mg/dL (0.2-1.0); Phosphorus 2.4 mg/dL (2.5-4.90)
[2020-09-19 12:56] LABS: Basophils # (auto) 0 10 ^3/uL (0-0.2); Basophils % (auto) 0.3 % (0.0-2.0); Eosinophils # (auto) 0 10 ^3/uL (0-0.8); Hematocrit 30.3 % (41.0-53.0); Hemoglobin 10.2 g/dL (13.5-17.5); Lymphocytes # (auto) 0.9 10 ^3/uL (0.4-5.4); Lymphocytes % (auto) 4.7 % (10.0-50.0); Mean Corpuscular Hemoglobin 29.9 pg (28.0-32.0); Mean Corpuscular Hgb Conc. 33.6 g/dL (32.0-36.0); Neutrophils # (auto) 17.2 10 ^3/uL (1.6-8.6); Platelet Count (auto) 328 10^3/uL (140-450); Red Cell Distribution Width 14.3 % (11.8-14.3); White Blood Cell 19.1 10^3/uL (4.4-10.8)
[2020-09-19] MEDS ORDERED: POTASSIUM PHOSPHATE 22 MEQ in SODIUM CHL 0.9% 100 ML IV ONE (14:15)
[2020-09-19] MEDS ORDERED: MAGNESIUM SULFATE 1GM/100ML 100 ML IV ONE (14:15)
[2020-09-19 16:00] VITALS: BP 104/79
[2020-09-19] MEDS: ACETAMINOPHEN 325 MG TAB PO PRN (17:30)
[2020-09-19] MEDS: POTASSIUM CHL 20MEQ/100ML 100 ML IV SCH (17:55)
[2020-09-19] MEDS: MORPHINE SULF INJ 2 MG/ML SYRINGE 1ML IV PRN (18:39)
[2020-09-19 22:00] VITALS: BP 99/62
[2020-09-20] MEDS: ALBUTEROL SULF 2.5 MG/0.5ML(0.5%) NEB SOLN NEB SCH ×5 (00:12→23:57)
[2020-09-20] MEDS: IPRATROPIUM BROM 0.5 MG/2.5ML INH SOL NEB SCH ×5 (00:12→23:57)
[2020-09-20] MEDS: POTASSIUM CHL 20MEQ/100ML 100 ML IV SCH (00:42)
[2020-09-20] MEDS: METOPROLOL TARTRATE 1MG/1ML-5ML VIAL IV PRN ×2 (02:54→21:59)
[2020-09-20 05:38] VITALS: BP 142/77
[2020-09-20] MEDS: methylPREDNISolone SOD SUCC 125 MG/2 ML VL IV SCH ×3 (05:47→22:00)
[2020-09-20] MEDS: ceFAZolin 1GM/50ML 50 ML IV SCH ×2 (05:47→13:52)
[2020-09-20 06:47] LABS: Basophils # (auto) 0 10 ^3/uL (0-0.2); Basophils % (auto) 0.2 % (0.0-2.0); Eosinophils # (auto) 0 10 ^3/uL (0-0.8); Hematocrit 27.9 % (41.0-53.0); Hemoglobin 9.4 g/dL (13.5-17.5); Lymphocytes # (auto) 0.4 10 ^3/uL (0.4-5.4); Lymphocytes % (auto) 2.1 % (10.0-50.0); Mean Corpuscular Hemoglobin 30.1 pg (28.0-32.0); Mean Corpuscular Hgb Conc. 33.5 g/dL (32.0-36.0); Mean Corpuscular Volume 89.7 fL (80.0-100.0); Monocytes # (auto) 0.6 10 ^3/uL (0-1.3); Monocytes % (auto) 3.4 % (0.0-12.0); Neutrophils # (auto) 17.5 10 ^3/uL (1.6-8.6); Neutrophils % (auto) 94.3 % (37.0-80.0); Platelet Count (auto) 336 10^3/uL (140-450); Red Blood Cells 3.11 10^6/uL (4.5-5.90); Red Cell Distribution Width 14.5 % (11.8-14.3); White Blood Cell 18.6 10^3/uL (4.4-10.8)
[2020-09-20 07:06] LABS: Albumin 2.4 g/dL (3.4-5.0); Calcium 7.9 mg/dL (8.5-10.1); Magnesium 1.9 mg/dL (1.6-2.6); Potassium 3.2 mmol/L (3.5-5.1)
[2020-09-20 07:09] LABS: BUN/Creatinine Ratio 25.9; Bilirubin, Total 0.8 mg/dL (0.2-1.0); Total Protein 5.9 g/dL (6.4-8.2)
[2020-09-20 09:00] VITALS: BP 105/51
[2020-09-20] MEDS: FOLIC ACID 1 MG in D5W 5% 50 ML INJ SCH (10:00)
[2020-09-20] MEDS: MULTIPLE VITAMIN TAB PO SCH (10:00)
[2020-09-20] MEDS: ASCORBIC ACID 500 MG TAB PO SCH (10:10)
[2020-09-20] MEDS: NICOTINE 21MG/24 HR TOPICAL PATCH TD SCH (10:10)
[2020-09-20] MEDS: ENOXAPARIN SOD 40 MG/0.4 ML SYRINGE SC SCH (10:10)
[2020-09-20] MEDS: MAGNESIUM SULFATE 1GM/100ML 100 ML IV SCH ×2 (10:10→13:36)
[2020-09-20] MEDS: THIAMINE 100mg/ml INJ (200mg/2ml VIAL) IV SCH (10:10)
[2020-09-20] MEDS: ZINC SULFATE 220mg CAP or TAB PO SCH (10:10)
[2020-09-20] MEDS: POTASSIUM EFFERVESENT TAB 25 MEQ GT SCH (10:11)
[2020-09-20] MEDS: FAMOTIDINE 20 MG TAB PO SCH ×2 (10:17→22:00)
[2020-09-20] MEDS: SODIUM CHLORIDE 0.9% 1,000 ML IV SCH (10:17)
[2020-09-20 16:00] VITALS: BP 122/77
[2020-09-20 22:00] VITALS: BP 135/46
[2020-09-21] MEDS: ceFAZolin 1GM/50ML 50 ML IV SCH ×4 (00:36→21:24)
[2020-09-21] MEDS: POTASSIUM EFFERVESENT TAB 25 MEQ GT SCH ×3 (00:37→21:24)
[2020-09-21] MEDS: ASCORBIC ACID 500 MG TAB PO SCH ×3 (00:40→21:27)
[2020-09-21] MEDS: SODIUM CHLORIDE 0.9% 1,000 ML IV SCH ×3 (00:59→15:15)
[2020-09-21 05:00] VITALS: BP 130/83
[2020-09-21] MEDS: methylPREDNISolone SOD SUCC 125 MG/2 ML VL IV SCH ×3 (05:54→21:25)
[2020-09-21] MEDS: IPRATROPIUM BROM 0.5 MG/2.5ML INH SOL NEB SCH ×4 (06:20→23:32)
[2020-09-21] MEDS: ALBUTEROL SULF 2.5 MG/0.5ML(0.5%) NEB SOLN NEB SCH ×4 (06:30→23:32)
[2020-09-21 08:00] VITALS: BP 121/75
[2020-09-21 08:46] LABS: Basophils # (auto) 0 10 ^3/uL (0-0.2); Basophils % (auto) 0.1 % (0.0-2.0); Eosinophils # (auto) 0 10 ^3/uL (0-0.8); Hematocrit 27.8 % (41.0-53.0); Hemoglobin 9.3 g/dL (13.5-17.5); Lymphocytes # (auto) 0.2 10 ^3/uL (0.4-5.4); Mean Corpuscular Hemoglobin 30.1 pg (28.0-32.0); Mean Corpuscular Hgb Conc. 33.3 g/dL (32.0-36.0); Mean Corpuscular Volume 90.3 fL (80.0-100.0); Monocytes # (auto) 0.3 10 ^3/uL (0-1.3); Neutrophils # (auto) 15.2 10 ^3/uL (1.6-8.6); Neutrophils % (auto) 96.9 % (37.0-80.0); Platelet Count (auto) 398 10^3/uL (140-450); Red Blood Cells 3.08 10^6/uL (4.5-5.90); Red Cell Distribution Width 14.5 % (11.8-14.3); White Blood Cell 15.6 10^3/uL (4.4-10.8)
[2020-09-21 09:09] LABS: Potassium 3.7 mmol/L (3.5-5.1)
[2020-09-21 09:24] LABS: Albumin 2.4 g/dL (3.4-5.0); BUN/Creatinine Ratio 32.7; Bilirubin, Total 0.6 mg/dL (0.2-1.0); Calcium 8.3 mg/dL (8.5-10.1); Magnesium 2.2 mg/dL (1.6-2.6); Phosphorus 2.7 mg/dL (2.5-4.90); Total Protein 5.7 g/dL (6.4-8.2)
[2020-09-21] MEDS: FOLIC ACID 1 MG in D5W 5% 50 ML INJ SCH (10:00)
[2020-09-21] MEDS: MULTIPLE VITAMIN TAB PO SCH (10:24)
[2020-09-21] MEDS: FAMOTIDINE 20 MG TAB PO SCH ×2 (10:24→21:27)
[2020-09-21] MEDS: THIAMINE 100mg/ml INJ (200mg/2ml VIAL) IV SCH (10:25)
[2020-09-21] MEDS: METOPROLOL TARTRATE 1MG/1ML-5ML VIAL IV PRN ×2 (10:26→18:26)
[2020-09-21] MEDS: NICOTINE 21MG/24 HR TOPICAL PATCH TD SCH (10:27)
[2020-09-21] MEDS: ENOXAPARIN SOD 40 MG/0.4 ML SYRINGE SC SCH (10:27)
[2020-09-21] MEDS: ZINC SULFATE 220mg CAP or TAB PO SCH (10:28)
[2020-09-21] MEDS ORDERED: guaiFENesin 200 MG/10 ML UD PO PRN (15:45)
[2020-09-21 16:00] VITALS: BP 117/91
[2020-09-21] MEDS: METOPROLOL TARTRATE 25 MG TAB PO SCH (21:28)
[2020-09-21 22:00] VITALS: BP 119/86
[2020-09-22] MEDS: SODIUM CHLORIDE 0.9% 1,000 ML IV SCH ×3 (01:16→21:15)
[2020-09-22] MEDS: TEMAZEPAM 15 MG CAP PO PRN (01:51)
[2020-09-22] MEDS: ACETAMINOPHEN 325 MG TAB PO PRN (02:42)
[2020-09-22 05:00] VITALS: BP 139/96
[2020-09-22] MEDS: ceFAZolin 1GM/50ML 50 ML IV SCH ×3 (05:22→22:20)
[2020-09-22] MEDS: methylPREDNISolone SOD SUCC 125 MG/2 ML VL IV SCH ×2 (05:22→14:48)
[2020-09-22 05:54] LABS: Basophils # (auto) 0 10 ^3/uL (0-0.2); Basophils % (auto) 0.1 % (0.0-2.0); Eosinophils # (auto) 0 10 ^3/uL (0-0.8); Hemoglobin 9.3 g/dL (13.5-17.5); Lymphocytes # (auto) 0.5 10 ^3/uL (0.4-5.4); Lymphocytes % (auto) 2.8 % (10.0-50.0); Mean Corpuscular Hgb Conc. 34.6 g/dL (32.0-36.0); Mean Corpuscular Volume 89.7 fL (80.0-100.0); Monocytes # (auto) 0.9 10 ^3/uL (0-1.3); Monocytes % (auto) 5.5 % (0.0-12.0); Neutrophils % (auto) 91.6 % (37.0-80.0); Platelet Count (auto) 398 10^3/uL (140-450); Red Blood Cells 3.01 10^6/uL (4.5-5.90); Red Cell Distribution Width 14.3 % (11.8-14.3); White Blood Cell 16.3 10^3/uL (4.4-10.8)
[2020-09-22 06:24] LABS: Potassium 3.8 mmol/L (3.5-5.1)
[2020-09-22 06:42] LABS: Albumin 2.6 g/dL (3.4-5.0); Calcium 8.2 mg/dL (8.5-10.1); Magnesium 1.9 mg/dL (1.6-2.6); Total Protein 5.8 g/dL (6.4-8.2)
[2020-09-22 07:05] LABS: BUN/Creatinine Ratio 43.5; Bilirubin, Total 0.5 mg/dL (0.2-1.0); Phosphorus 3.1 mg/dL (2.5-4.90)
[2020-09-22] MEDS: ALBUTEROL SULF 2.5 MG/0.5ML(0.5%) NEB SOLN NEB SCH ×3 (07:32→19:46)
[2020-09-22] MEDS: IPRATROPIUM BROM 0.5 MG/2.5ML INH SOL NEB SCH ×3 (07:32→19:46)
[2020-09-22 09:00] VITALS: BP 126/64
[2020-09-22] MEDS: ENOXAPARIN SOD 40 MG/0.4 ML SYRINGE SC SCH (10:30)
[2020-09-22] MEDS: POTASSIUM EFFERVESENT TAB 25 MEQ GT SCH ×2 (10:31→22:00)
[2020-09-22] MEDS: FOLIC ACID 1 MG in D5W 5% 50 ML INJ SCH (10:31)
[2020-09-22] MEDS: THIAMINE 100mg/ml INJ (200mg/2ml VIAL) IV SCH (10:32)
[2020-09-22] MEDS: METOPROLOL TARTRATE 25 MG TAB PO SCH ×2 (10:33→22:20)
[2020-09-22] MEDS: FAMOTIDINE 20 MG TAB PO SCH ×2 (10:33→22:21)
[2020-09-22] MEDS: ASCORBIC ACID 500 MG TAB PO SCH ×2 (10:33→22:21)
[2020-09-22] MEDS: ZINC SULFATE 220mg CAP or TAB PO SCH (10:33)
[2020-09-22] MEDS: MULTIPLE VITAMIN TAB PO SCH (10:33)
[2020-09-22] MEDS: NICOTINE 21MG/24 HR TOPICAL PATCH TD SCH (10:34)
[2020-09-22 12:00] VITALS: BP 132/83
[2020-09-22] MEDS: MAGNESIUM SULFATE 1GM/100ML 100 ML IV SCH ×2 (14:48→17:28)
[2020-09-22 21:00] VITALS: BP 142/91
[2020-09-22] MEDS: methylPREDNISolone SOD SUCC 40 MG/ML VL IV SCH (22:20)
[2020-09-23] MEDS: IPRATROPIUM BROM 0.5 MG/2.5ML INH SOL NEB SCH ×4 (00:23→19:20)
[2020-09-23] MEDS: ALBUTEROL SULF 2.5 MG/0.5ML(0.5%) NEB SOLN NEB SCH ×4 (00:23→19:20)
[2020-09-23 05:00] VITALS: BP 135/84
[2020-09-23] MEDS: ceFAZolin 1GM/50ML 50 ML IV SCH ×3 (06:07→21:31)
[2020-09-23 07:45] VITALS: BP 148/100
[2020-09-23] MEDS ORDERED: HALOPERIDOL LACTATE 5 MG/ML INJ VIAL IM PRN (09:45)
[2020-09-23] MEDS: FOLIC ACID 1 MG in D5W 5% 50 ML INJ SCH (10:40)
[2020-09-23] MEDS: methylPREDNISolone SOD SUCC 40 MG/ML VL IV SCH ×2 (10:40→21:31)
[2020-09-23] MEDS: ENOXAPARIN SOD 40 MG/0.4 ML SYRINGE SC SCH (10:41)
[2020-09-23] MEDS: POTASSIUM EFFERVESENT TAB 25 MEQ GT SCH ×2 (10:41→21:31)
[2020-09-23] MEDS: THIAMINE 100mg/ml INJ (200mg/2ml VIAL) IV SCH (10:41)
[2020-09-23] MEDS: NICOTINE 21MG/24 HR TOPICAL PATCH TD SCH (10:42)
[2020-09-23] MEDS: ZINC SULFATE 220mg CAP or TAB PO SCH (10:43)
[2020-09-23] MEDS: ASCORBIC ACID 500 MG TAB PO SCH ×2 (10:43→21:33)
[2020-09-23] MEDS: METOPROLOL TARTRATE 25 MG TAB PO SCH ×2 (10:44→21:32)
[2020-09-23] MEDS: FAMOTIDINE 20 MG TAB PO SCH ×2 (10:44→21:32)
[2020-09-23] MEDS: MULTIPLE VITAMIN TAB PO SCH (10:44)
[2020-09-23] MEDS: SERTRALINE HCL 50 MG TAB PO SCH (10:45)
[2020-09-23] MEDS: SODIUM CHLORIDE 0.9% 1,000 ML IV SCH (10:59)
[2020-09-23] MEDS ORDERED: FUROSEMIDE 40 MG/4 ML VIAL IV ONE (12:00)
[2020-09-23 12:35] LABS: BUN/Creatinine Ratio 31.3; Calcium 8.2 mg/dL (8.5-10.1); Magnesium 2.2 mg/dL (1.6-2.6); Potassium 3.8 mmol/L (3.5-5.1)
[2020-09-23 16:08] VITALS: BP 134/85
[2020-09-23 21:20] VITALS: BP 116/75
[2020-09-24] MEDS: ALBUTEROL SULF 2.5 MG/0.5ML(0.5%) NEB SOLN NEB SCH ×4 (01:07→19:43)
[2020-09-24] MEDS: IPRATROPIUM BROM 0.5 MG/2.5ML INH SOL NEB SCH ×4 (01:07→19:43)
[2020-09-24] MEDS: ACETAMINOPHEN 325 MG TAB PO PRN (03:46)
[2020-09-24 04:31] VITALS: BP 144/83
[2020-09-24 04:34] VITALS: BP 144/83
[2020-09-24] MEDS: ceFAZolin 1GM/50ML 50 ML IV SCH ×3 (05:33→21:47)
[2020-09-24 07:59] VITALS: BP 139/82
[2020-09-24 08:34] LABS: Potassium 3.3 mmol/L (3.5-5.1)
[2020-09-24 08:38] LABS: Basophils # (auto) 0.1 10 ^3/uL (0-0.2); Basophils % (auto) 0.9 % (0.0-2.0); Eosinophils # (auto) 0 10 ^3/uL (0-0.8); Hematocrit 26.9 % (41.0-53.0); Hemoglobin 9.3 g/dL (13.5-17.5); Lymphocytes # (auto) 0.8 10 ^3/uL (0.4-5.4); Lymphocytes % (auto) 6.4 % (10.0-50.0); Mean Corpuscular Hgb Conc. 34.5 g/dL (32.0-36.0); Mean Corpuscular Volume 89.7 fL (80.0-100.0); Monocytes % (auto) 8.3 % (0.0-12.0); Neutrophils # (auto) 10.6 10 ^3/uL (1.6-8.6); Neutrophils % (auto) 84.4 % (37.0-80.0); Platelet Count (auto) 387 10^3/uL (140-450); Red Blood Cells 2.99 10^6/uL (4.5-5.90); White Blood Cell 12.6 10^3/uL (4.4-10.8)
[2020-09-24 08:47] LABS: Calcium 7.9 mg/dL (8.5-10.1); Magnesium 1.7 mg/dL (1.6-2.6); Phosphorus 2.7 mg/dL (2.5-4.90)
[2020-09-24] MEDS: ZINC SULFATE 220mg CAP or TAB PO SCH (09:55)
[2020-09-24] MEDS: POTASSIUM EFFERVESENT TAB 25 MEQ GT SCH (09:55)
[2020-09-24] MEDS: SERTRALINE HCL 50 MG TAB PO SCH (09:55)
[2020-09-24] MEDS: ASCORBIC ACID 500 MG TAB PO SCH ×2 (09:55→21:46)
[2020-09-24] MEDS: THIAMINE 100mg/ml INJ (200mg/2ml VIAL) IV SCH (09:56)
[2020-09-24] MEDS: MULTIPLE VITAMIN TAB PO SCH (09:56)
[2020-09-24] MEDS: NICOTINE 21MG/24 HR TOPICAL PATCH TD SCH (09:56)
[2020-09-24] MEDS: methylPREDNISolone SOD SUCC 40 MG/ML VL IV SCH (09:56)
[2020-09-24] MEDS: FAMOTIDINE 20 MG TAB PO SCH (09:57)
[2020-09-24] MEDS: METOPROLOL TARTRATE 25 MG TAB PO SCH ×2 (09:58→21:51)
[2020-09-24 13:00] VITALS: BP 151/97
[2020-09-24] MEDS: FOLIC ACID 1 MG in D5W 5% 50 ML INJ SCH (14:55)
[2020-09-24 16:49] VITALS: BP 136/85
[2020-09-24] MEDS ORDERED: PANTOPRAZOLE 40 MG TAB PO ONE (17:45)
[2020-09-24 21:04] VITALS: BP 111/52
[2020-09-24] MEDS: TEMAZEPAM 15 MG CAP PO PRN (23:03)
[2020-09-25] MEDS: ALBUTEROL SULF 2.5 MG/0.5ML(0.5%) NEB SOLN NEB SCH ×4 (00:10→17:18)
[2020-09-25] MEDS: IPRATROPIUM BROM 0.5 MG/2.5ML INH SOL NEB SCH ×4 (00:10→17:18)
[2020-09-25] MEDS: ACETAMINOPHEN 325 MG TAB PO PRN (02:28)
[2020-09-25 04:00] VITALS: BP 153/78
[2020-09-25 05:03] VITALS: BP 138/84
[2020-09-25] MEDS: ceFAZolin 1GM/50ML 50 ML IV SCH ×3 (05:29→21:20)
[2020-09-25 05:57] LABS: Basophils # (auto) 0 10 ^3/uL (0-0.2); Basophils % (auto) 0.2 % (0.0-2.0); Eosinophils # (auto) 0.1 10 ^3/uL (0-0.8); Eosinophils % (auto) 0.7 % (0.0-7.0); Hematocrit 27.6 % (41.0-53.0); Hemoglobin 9.6 g/dL (13.5-17.5); Lymphocytes # (auto) 0.9 10 ^3/uL (0.4-5.4); Lymphocytes % (auto) 7.7 % (10.0-50.0); Mean Corpuscular Hemoglobin 31.6 pg (28.0-32.0); Mean Corpuscular Hgb Conc. 34.9 g/dL (32.0-36.0); Mean Corpuscular Volume 90.6 fL (80.0-100.0); Monocytes # (auto) 0.8 10 ^3/uL (0-1.3); Neutrophils # (auto) 9.5 10 ^3/uL (1.6-8.6); Neutrophils % (auto) 84.4 % (37.0-80.0); Platelet Count (auto) 344 10^3/uL (140-450); Red Blood Cells 3.04 10^6/uL (4.5-5.90); Red Cell Distribution Width 14.4 % (11.8-14.3); White Blood Cell 11.2 10^3/uL (4.4-10.8)
[2020-09-25 06:26] LABS: Potassium 3.3 mmol/L (3.5-5.1)
[2020-09-25 06:35] LABS: BUN/Creatinine Ratio 23.6; Calcium 8.1 mg/dL (8.5-10.1); Magnesium 1.7 mg/dL (1.6-2.6)
[2020-09-25 08:00] VITALS: BP 136/84
[2020-09-25] MEDS: ASCORBIC ACID 500 MG TAB PO SCH ×2 (09:00→21:21)
[2020-09-25] MEDS: POTASSIUM CHL 20MEQ/100ML 100 ML IV SCH ×2 (09:00→11:08)
[2020-09-25] MEDS: PANTOPRAZOLE 40 MG TAB PO SCH (09:01)
[2020-09-25] MEDS: MULTIPLE VITAMIN TAB PO SCH (09:01)
[2020-09-25] MEDS: SERTRALINE HCL 50 MG TAB PO SCH (09:02)
[2020-09-25] MEDS: THIAMINE 100mg/ml INJ (200mg/2ml VIAL) IV SCH (09:03)
[2020-09-25] MEDS: METOPROLOL TARTRATE 25 MG TAB PO SCH ×2 (09:03→21:20)
[2020-09-25] MEDS: ZINC SULFATE 220mg CAP or TAB PO SCH (09:05)
[2020-09-25] MEDS: methylPREDNISolone SOD SUCC 40 MG/ML VL IV SCH (09:05)
[2020-09-25] MEDS: NICOTINE 21MG/24 HR TOPICAL PATCH TD SCH (09:06)
[2020-09-25] MEDS: MAGNESIUM SULFATE 1GM/100ML 100 ML IV SCH ×2 (11:09→12:39)
[2020-09-25] MEDS ORDERED: MAGNESIUM SULFATE 1GM/100ML 100 ML IV SCH (13:00)
[2020-09-25 16:00] VITALS: BP 124/77
[2020-09-25] MEDS: FOLIC ACID 1 MG in D5W 5% 50 ML INJ SCH (16:44)
[2020-09-25] MEDS ORDERED: ALBUTEROL SULF 2.5 MG/0.5ML(0.5%) NEB SOLN NEB PRN (18:15)
[2020-09-25] MEDS ORDERED: HYDROcodone-ACET 5/325MG TAB PO PRN (18:30)
[2020-09-25] MEDS: HYDROcodone-ACET 10/325MG TAB PO PRN (21:21)
[2020-09-25 22:00] VITALS: BP 116/77
[2020-09-26 05:00] VITALS: BP 137/86
[2020-09-26] MEDS: HYDROcodone-ACET 10/325MG TAB PO PRN ×2 (05:35→21:42)
[2020-09-26] MEDS: ceFAZolin 1GM/50ML 50 ML IV SCH ×3 (05:36→21:35)
[2020-09-26] MEDS: ALBUTEROL SULF 2.5 MG/0.5ML(0.5%) NEB SOLN NEB SCH ×4 (05:55→18:55)
[2020-09-26] MEDS: IPRATROPIUM BROM 0.5 MG/2.5ML INH SOL NEB SCH ×4 (05:55→18:55)
[2020-09-26 08:00] VITALS: BP 132/78
[2020-09-26] MEDS: ZINC SULFATE 220mg CAP or TAB PO SCH (09:10)
[2020-09-26] MEDS: methylPREDNISolone SOD SUCC 40 MG/ML VL IV SCH (09:10)
[2020-09-26] MEDS: THIAMINE 100mg/ml INJ (200mg/2ml VIAL) IV SCH (09:10)
[2020-09-26] MEDS: SERTRALINE HCL 50 MG TAB PO SCH (09:12)
[2020-09-26] MEDS: ASCORBIC ACID 500 MG TAB PO SCH ×2 (09:12→21:35)
[2020-09-26] MEDS: PANTOPRAZOLE 40 MG TAB PO SCH (09:12)
[2020-09-26] MEDS: METOPROLOL TARTRATE 25 MG TAB PO SCH ×2 (09:12→21:41)
[2020-09-26] MEDS: MULTIPLE VITAMIN TAB PO SCH (09:12)
[2020-09-26] MEDS: NICOTINE 21MG/24 HR TOPICAL PATCH TD SCH (09:13)
[2020-09-26] MEDS ORDERED: ENOXAPARIN SOD 40 MG/0.4 ML SYRINGE SC SCH (10:00)
[2020-09-26] MEDS: FOLIC ACID 1 MG in D5W 5% 50 ML INJ SCH (10:53)
[2020-09-26] MEDS ORDERED: POTASSIUM CHL 20 Meq TABLET PO SCH (15:30)
[2020-09-26 16:00] VITALS: BP 138/85
[2020-09-26 18:01] VITALS: BP 132/78
== END 2020-09-26 23:10 | disposition home health service (06) | DRG 207 ==
LOC: ER 12:46 → TELE 12:47 → ICU WEST 09-11 09:52 → CATH ICU 09-12 15:59 → TELE-CENTR 09-19 01:00
PROVIDERS: ADMIT Internal Medicine; ATTEND Internal Medicine
PROC: 0W9B30Z Drainage of Left Pleural Cavity with Drainage Device, Percutaneous Approach (ICD-10-PCS; 2020-09-10)
PROC: 5A1955Z Respiratory Ventilation, Greater than 96 Consecutive Hours (ICD-10-PCS; 2020-09-11)
PROC: 0BH17EZ Insertion of Endotracheal Airway into Trachea, Via Natural or Artificial Opening (ICD-10-PCS; 2020-09-11)
PROC: 5A09357 Assistance with Respiratory Ventilation, Less than 24 Consecutive Hours, Continuous Positive Airway Pressure (ICD-10-PCS; principal; 2020-09-17)
PROC: 5A09357 Assistance with Respiratory Ventilation, Less than 24 Consecutive Hours, Continuous Positive Airway Pressure (ICD-10-PCS; 2020-09-18)
PROC: 5A1935Z Respiratory Ventilation, Less than 24 Consecutive Hours (ICD-10-PCS; 2020-09-18)
PROC: 5A09357 Assistance with Respiratory Ventilation, Less than 24 Consecutive Hours, Continuous Positive Airway Pressure (ICD-10-PCS; 2020-09-19)
PROC: 5A09357 Assistance with Respiratory Ventilation, Less than 24 Consecutive Hours, Continuous Positive Airway Pressure (ICD-10-PCS; 2020-09-20)
DX: S27.0XXA Traumatic pneumothorax, initial encounter (principal); N17.0 Acute kidney failure with tubular necrosis; J96.01 Acute respiratory failure with hypoxia; G93.41 Metabolic encephalopathy; S22.42XA Multiple fractures of ribs, left side, initial encounter for closed fracture; G93.1 Anoxic brain damage, not elsewhere classified; E87.3 Alkalosis; S02.2XXA Fracture of nasal bones, initial encounter for closed fracture; E87.6 Hypokalemia; R56.9 Unspecified convulsions; D72.829 Elevated white blood cell count, unspecified; J43.9 Emphysema, unspecified; Z20.822 Contact with and (suspected) exposure to COVID-19; Y93.89 Activity, other specified; Y99.8 Other external cause status; Y92.89 Other specified places as the place of occurrence of the external cause; Y08.89XA Assault by other specified means, initial encounter; Z82.49 Family history of ischemic heart disease and other diseases of the circulatory system; Z83.3 Family history of diabetes mellitus
CPT/HCPCS: 36415; 36600; 70450; 70486; 71045; 71046; 71250; 71260; 72125; 74177; 80048; 80053; 82140; 82805; 83605; 83735; 83880; 84100; 84132; 84443; 85007; 85025; 85027; 85610; 85730; 87040; 87070; 87077; 87081; 87186; 87205; 87426; 92610; 94003; 94640; 94660; 95819; 96365; 96367; 96368; 96375; 97110; 97116; 97530; 99291; G0378; J0330; J0690; J0696; J2001; J2250; J2405; J2543; J2704; J3480; J7060

== ENCOUNTER 2021-12-29 19:44 | Inpatient (IN) | payer OTHER, MEDICAID ==
[~2021-12-29] VITALS: Ht 162.6 cm; Wt 55.3 kg
[~2021-12-29 19:44] MED LIST: ALBU2TAB4 PO; HYDR-4833 PO; METO10TA7 PO; OMEP20TA PO; POTA-180 PO; TIOTCAP IN
[2021-12-29 22:51] LABS: Basophils # (auto) 0.1 10 ^3/uL (0-0.2); Hemoglobin 9.4 g/dL (13.5-17.5); Lymphocytes # (auto) 1.1 10 ^3/uL (0.4-5.4); Monocytes # (auto) 0.6 10 ^3/uL (0-1.3); Neutrophils # (auto) 6.2 10 ^3/uL (1.6-8.6); White Blood Cell 8.1 10^3/uL (4.4-10.8)
[2021-12-29 22:52] LABS: Basophils % (auto) 1.4 % (0.0-2.0); Eosinophils # (auto) 0.1 10 ^3/uL (0-0.8); Eosinophils % (auto) 1.7 % (0.0-7.0); Hematocrit 27.5 % (41.0-53.0); Lymphocytes % (auto) 14.1 % (10.0-50.0); Mean Corpuscular Hemoglobin 35.4 pg (28.0-32.0); Mean Corpuscular Hgb Conc. 34.3 g/dL (32.0-36.0); Mean Corpuscular Volume 103.2 fL (80.0-100.0); Monocytes % (auto) 6.9 % (0.0-12.0); Neutrophils % (auto) 75.9 % (37.0-80.0); Red Blood Cells 2.66 10^6/uL (4.5-5.90); Red Cell Distribution Width 14.5 % (11.8-14.3)
[2021-12-29] MEDS ORDERED: ACETAMINOPHEN 500 MG TAB PO ONE (23:00)
[2021-12-29 23:17] LABS: Albumin 3.3 g/dL (3.4-5.0); BUN/Creatinine Ratio 12.8; Calcium 8.9 mg/dL (8.5-10.1); Potassium 4.6 mmol/L (3.5-5.1)
[2021-12-29 23:19] LABS: Bilirubin, Total 0.4 mg/dL (0.2-1.0); Total Protein 6.5 g/dL (6.4-8.2)
[2021-12-30] MEDS ORDERED: SODIUM CHLORIDE 0.9% 1,000 ML IV ONE (05:10)
[2021-12-30] MEDS ORDERED: ACETAMINOPHEN 325 MG TAB PO PRN (07:00)
[2021-12-30] MEDS ORDERED: NITROGLYCERIN 0.4 MG SL TAB SL PRN (07:00)
[2021-12-30] MEDS ORDERED: ONDANSETRON HCL 4 MG/2 ML VIAL IV PRN (07:00)
[2021-12-30] MEDS ORDERED: MORPHINE SULFATE INJECTION 2 MG/ML SYRG IV PRN (07:00)
[2021-12-30] MEDS ORDERED: DOCUSATE SOD 100 MG CAP PO PRN (07:00)
[2021-12-30 08:41] LABS: Urine Bacteria FEW /hpf (None Seen); Urine Blood 1+ /uL (Negative); Urine Hyaline Cast FEW /lpf (0 - 2); Urine Specific Gravity 1.009 (1.001-1.035); Urine WBC 2 /hpf (0 - 3)
[2021-12-30] MEDS: ZINC SULFATE 220mg CAP or TAB PO SCH (10:28)
[2021-12-30] MEDS: ASCORBIC ACID 500 MG TAB PO SCH ×2 (10:29→21:30)
[2021-12-30] MEDS: MULTIPLE VITAMIN TAB PO SCH (10:29)
[2021-12-30] MEDS: MORPHINE SULFATE INJECTION 2 MG/ML SYRG IV PRN ×3 (10:30→19:09)
[2021-12-30] MEDS: SODIUM CHLORIDE 0.9% 1,000 ML IV SCH (13:32)
[2021-12-30] MEDS: PIPERACILLIN-TAZOB 3.375GM 100 ML IV SCH ×2 (13:33→21:30)
[2021-12-30 19:10] VITALS: BP 114/75
[2021-12-30 22:00] VITALS: BP 99/70
[2021-12-31 05:00] VITALS: BP 110/70
[2021-12-31] MEDS: PIPERACILLIN-TAZOB 3.375GM 100 ML IV SCH ×3 (05:16→21:34)
[2021-12-31] MEDS: MORPHINE SULFATE INJECTION 2 MG/ML SYRG IV PRN ×4 (05:17→21:37)
[2021-12-31 06:00] LABS: Basophils # (auto) 0 10 ^3/uL (0-0.2); Eosinophils # (auto) 0.1 10 ^3/uL (0-0.8); Hemoglobin 8.2 g/dL (13.5-17.5); Lymphocytes # (auto) 0.5 10 ^3/uL (0.4-5.4); Monocytes # (auto) 0.2 10 ^3/uL (0-1.3); Monocytes % (auto) 6.1 % (0.0-12.0); White Blood Cell 3.9 10^3/uL (4.4-10.8)
[2021-12-31 06:02] LABS: Basophils % (auto) 0.7 % (0.0-2.0); Eosinophils % (auto) 3.2 % (0.0-7.0); Hematocrit 23.8 % (41.0-53.0); Lymphocytes % (auto) 11.7 % (10.0-50.0); Mean Corpuscular Hemoglobin 36.1 pg (28.0-32.0); Mean Corpuscular Hgb Conc. 34.2 g/dL (32.0-36.0); Mean Corpuscular Volume 105.4 fL (80.0-100.0); Neutrophils % (auto) 78.3 % (37.0-80.0); Red Blood Cells 2.26 10^6/uL (4.5-5.90)
[2021-12-31 06:11] LABS: Albumin 2.6 g/dL (3.4-5.0); BUN/Creatinine Ratio 13.9; Calcium 8.3 mg/dL (8.5-10.1)
[2021-12-31 06:14] LABS: Bilirubin, Total 0.2 mg/dL (0.2-1.0)
[2021-12-31 09:00] VITALS: BP 138/68
[2021-12-31] MEDS: SODIUM CHLORIDE 0.9% 1,000 ML IV SCH (09:00)
[2021-12-31] MEDS: ASCORBIC ACID 500 MG TAB PO SCH ×2 (09:36→21:34)
[2021-12-31] MEDS: ZINC SULFATE 220mg CAP or TAB PO SCH (09:36)
[2021-12-31] MEDS: MULTIPLE VITAMIN TAB PO SCH (09:36)
[2021-12-31 13:00] VITALS: BP 135/65
[2021-12-31] MEDS ORDERED: IOHEXOL 350 MG/ML 100ML IJ ONE (13:09)
[2021-12-31 17:00] VITALS: BP 106/58
[2021-12-31 22:00] VITALS: BP 100/60
[2022-01-01 05:00] VITALS: BP 127/93
[2022-01-01 05:24] LABS: Basophils # (auto) 0 10 ^3/uL (0-0.2); Eosinophils # (auto) 0.1 10 ^3/uL (0-0.8); Hematocrit 22.7 % (41.0-53.0); Lymphocytes # (auto) 0.7 10 ^3/uL (0.4-5.4); Neutrophils # (auto) 2.5 10 ^3/uL (1.6-8.6); Red Blood Cells 2.19 10^6/uL (4.5-5.90)
[2022-01-01 05:27] LABS: Eosinophils % (auto) 3.8 % (0.0-7.0); Hemoglobin 7.9 g/dL (13.5-17.5); Mean Corpuscular Hemoglobin 36.1 pg (28.0-32.0); Mean Corpuscular Hgb Conc. 34.7 g/dL (32.0-36.0); Mean Corpuscular Volume 103.9 fL (80.0-100.0); Monocytes # (auto) 0.3 10 ^3/uL (0-1.3); Monocytes % (auto) 7.1 % (0.0-12.0); Neutrophils % (auto) 69.1 % (37.0-80.0); Red Cell Distribution Width 14.9 % (11.8-14.3); White Blood Cell 3.6 10^3/uL (4.4-10.8)
[2022-01-01] MEDS: PIPERACILLIN-TAZOB 3.375GM 100 ML IV SCH ×3 (06:08→22:15)
[2022-01-01] MEDS: MORPHINE SULFATE INJECTION 2 MG/ML SYRG IV PRN ×5 (06:09→23:16)
[2022-01-01] MEDS: ASCORBIC ACID 500 MG TAB PO SCH (08:18)
[2022-01-01] MEDS: ZINC SULFATE 220mg CAP or TAB PO SCH (08:18)
[2022-01-01] MEDS: MULTIPLE VITAMIN TAB PO SCH (08:18)
[2022-01-01 09:00] VITALS: BP 109/52
[2022-01-01 09:59] LABS: BUN/Creatinine Ratio 14.5; Calcium 8.5 mg/dL (8.5-10.1); Potassium 3.8 mmol/L (3.5-5.1)
[2022-01-01 13:00] VITALS: BP 109/56
[2022-01-01 17:00] VITALS: BP 103/49
[2022-01-01 22:00] VITALS: BP 106/68
[2022-01-02] MEDS: MORPHINE SULFATE INJECTION 2 MG/ML SYRG IV PRN ×4 (03:09→23:35)
[2022-01-02 05:00] VITALS: BP 123/59
[2022-01-02] MEDS: PIPERACILLIN-TAZOB 3.375GM 100 ML IV SCH ×3 (05:43→23:22)
[2022-01-02] MEDS: MULTIPLE VITAMIN TAB PO SCH (08:04)
[2022-01-02 09:00] VITALS: BP 124/61
[2022-01-02 13:00] VITALS: BP 147/81
[2022-01-02 17:00] VITALS: BP 135/69
[2022-01-02 20:00] VITALS: BP 109/59
[2022-01-02 22:00] VITALS: BP 109/59
[2022-01-03 05:00] VITALS: BP 143/63
[2022-01-03] MEDS: PIPERACILLIN-TAZOB 3.375GM 100 ML IV SCH ×3 (06:32→23:28)
[2022-01-03] MEDS: MULTIPLE VITAMIN TAB PO SCH (08:02)
[2022-01-03] MEDS: MORPHINE SULFATE INJECTION 2 MG/ML SYRG IV PRN ×3 (08:37→23:30)
[2022-01-03 09:00] VITALS: BP 115/67
[2022-01-03 12:00] VITALS: BP 110/60
[2022-01-03 17:00] VITALS: BP 102/72
[2022-01-03 20:00] VITALS: BP 121/84
[2022-01-03 22:00] VITALS: BP 129/87
[2022-01-04] MEDS: MORPHINE SULFATE INJECTION 2 MG/ML SYRG IV PRN (04:34)
[2022-01-04 05:00] VITALS: BP 121/84
[2022-01-04 05:24] LABS: Basophils # (auto) 0.1 10 ^3/uL (0-0.2); Basophils % (auto) 1.7 % (0.0-2.0); Eosinophils # (auto) 0.2 10 ^3/uL (0-0.8); Eosinophils % (auto) 5.6 % (0.0-7.0); Hematocrit 22.8 % (41.0-53.0); Hemoglobin 7.9 g/dL (13.5-17.5); Lymphocytes # (auto) 0.9 10 ^3/uL (0.4-5.4); Lymphocytes % (auto) 30.2 % (10.0-50.0); Mean Corpuscular Hemoglobin 35.7 pg (28.0-32.0); Mean Corpuscular Hgb Conc. 34.5 g/dL (32.0-36.0); Mean Corpuscular Volume 103.6 fL (80.0-100.0); Monocytes # (auto) 0.5 10 ^3/uL (0-1.3); Monocytes % (auto) 17.7 % (0.0-12.0); Neutrophils # (auto) 1.4 10 ^3/uL (1.6-8.6); Neutrophils % (auto) 44.8 % (37.0-80.0); Nucleated Red Blood Cells % 0.1 %; White Blood Cell 3.1 10^3/uL (4.4-10.8)
[2022-01-04 05:47] LABS: Albumin 2.5 g/dL (3.4-5.0); Calcium 8.5 mg/dL (8.5-10.1)
[2022-01-04 05:52] LABS: BUN/Creatinine Ratio 11.9; Bilirubin, Total 0.2 mg/dL (0.2-1.0); Total Protein 5.5 g/dL (6.4-8.2)
[2022-01-04] MEDS: PIPERACILLIN-TAZOB 3.375GM 100 ML IV SCH ×3 (06:29→22:04)
[2022-01-04 08:00] VITALS: BP 124/82
[2022-01-04 09:00] VITALS: BP 124/82
[2022-01-04] MEDS: MULTIPLE VITAMIN TAB PO SCH (09:40)
[2022-01-04 13:00] VITALS: BP 95/72
[2022-01-04] MEDS ORDERED: CEPH500C PO (16:59)
[2022-01-04 17:00] VITALS: BP 134/85
[2022-01-04] MEDS: HYDROcodone-ACET 5/325MG TAB PO PRN (20:20)
[2022-01-04 22:00] VITALS: BP 133/86
[2022-01-05 05:00] VITALS: BP 125/82
[2022-01-05] MEDS: PIPERACILLIN-TAZOB 3.375GM 100 ML IV SCH (05:44)
[2022-01-05] MEDS: HYDROcodone-ACET 5/325MG TAB PO PRN ×4 (07:41→22:29)
[2022-01-05 09:00] VITALS: BP 131/84
[2022-01-05] MEDS: MULTIPLE VITAMIN TAB PO SCH (09:43)
[2022-01-05 17:00] VITALS: BP 118/88
[2022-01-05] MEDS ORDERED: BUDESONIDE (INHALATION) 0.5 MG/2 ML NEB ONE (20:35)
[2022-01-05] MEDS ORDERED: ALBUTEROL SULF 2.5 MG/0.5ML(0.5%) NEB SOLN ONE (20:36)
[2022-01-05] MEDS: ALBUTEROL SULF 2.5 MG/0.5ML(0.5%) NEB SOLN NEB PRN (20:45)
[2022-01-05] MEDS: BUDESONIDE (INHALATION) 0.5 MG/2 ML NEB NEB SCH (20:45)
[2022-01-05 22:00] VITALS: BP 111/71
[2022-01-06] MEDS: ALBUTEROL SULF 2.5 MG/0.5ML(0.5%) NEB SOLN NEB PRN ×2 (00:19→06:57)
[2022-01-06 01:02] VITALS: BP 118/88
[2022-01-06 05:00] VITALS: BP 120/74
[2022-01-06] MEDS: BUDESONIDE (INHALATION) 0.5 MG/2 ML NEB NEB SCH (06:57)
[2022-01-06 09:20] VITALS: BP 120/74
[2022-01-08] MEDS ORDERED: HYDR-4902 PO (17:03)
== END 2022-01-06 11:45 | disposition home health service (06) | DRG 315 ==
LOC: ER 19:44 → TELE 12-30 06:59 → TELE-EAST 12-30 07:31
PROVIDERS: ADMIT Internal Medicine; ATTEND Internal Medicine
DX: I95.9 Hypotension, unspecified (principal); N17.9 Acute kidney failure, unspecified; J96.10 Chronic respiratory failure, unspecified whether with hypoxia or hypercapnia; J98.11 Atelectasis; M48.56XA Collapsed vertebra, not elsewhere classified, lumbar region, initial encounter for fracture; M53.3 Sacrococcygeal disorders, not elsewhere classified; I65.29 Occlusion and stenosis of unspecified carotid artery; S81.011A Laceration without foreign body, right knee, initial encounter; F17.210 Nicotine dependence, cigarettes, uncomplicated; I10 Essential (primary) hypertension; J43.9 Emphysema, unspecified; R29.6 Repeated falls; K21.9 Gastro-esophageal reflux disease without esophagitis; R79.89 Other specified abnormal findings of blood chemistry; E86.0 Dehydration; D64.9 Anemia, unspecified; Z20.822 Contact with and (suspected) exposure to COVID-19; W18.39XA Other fall on same level, initial encounter; Y93.89 Activity, other specified; Y92.89 Other specified places as the place of occurrence of the external cause; Y99.8 Other external cause status
CPT/HCPCS: 36415; 71045; 71275; 72131; 72192; 73562; 80048; 80053; 81001; 82270; 83605; 84443; 85025; 93005; 93306; 93886; 94640; 96360; 96361; G0378; J2543